=== PATIENT | male | born 1945 | race Two or more races ===

== ENCOUNTER 2021-09-28 16:25 | Emergency (ER) | payer MEDICARE, OTHER ==
[~2021-09-28] VITALS: Ht 175.3 cm; Wt 89.0 kg
[2021-09-28] MEDS ORDERED: METHYLPREDNISOLONE SOD SUCC 125 MG/2 ML VIAL IV STA (17:54)
[2021-09-28] MEDS ORDERED: ALBUTEROL (0.083%) 2.5MG/3ML NEB HHN STA (17:54)
[2021-09-28] MEDS ORDERED: IPRATROPIUM BROMIDE (0.02%) 0.5MG/2.5ML NEB HHN STA (17:54)
[2021-09-28 18:16] LABS: BASOPHILS % 1.4 % (0.0-2.0); EOSINOPHILS % 13.7 % (0.0-5.0); HEMATOCRIT. 41.5 % (42.0-52.0); HEMOGLOBIN. 14.6 g/dL (14.0-18.0); LYMPHOCYTES % 31.5 % (20.0-50.0); MEAN CORPUSCULAR HEMOGLOBIN 31.1 pg (28.0-32.0); MEAN CORPUSCULAR VOLUME 88.7 fL (80.0-94.0); MEAN PLATELET VOLUME 8.8 fl (7.4-10.4); MONOCYTES % 9.6 % (2.0-8.0); NEUTROPHILS % 43.8 % (40.0-76.0); PLATELET 261 x1000/uL (130-400); RED BLOOD CELL COUNT 4.68 mill/uL (4.7-6.1); RED CELL DISTRIBUTION WIDTH 13.3 % (11.6-14.6)
[2021-09-28 18:19] LABS: CHLORIDE 103 mEq/L (98-107)
[2021-09-28 18:28] LABS: ETHANOL BLOOD < 10 mg/dL
[2021-09-28 18:31] LABS: *AMPHETAMINES SCREEN URINE NEGATIVE (NEGATIVE); *BARBITURATES SCREEN URINE NEGATIVE (NEGATIVE); *BENZODIAZEPINES SCREEN URINE NEGATIVE (NEGATIVE); *COCAINE SCREEN URINE NEGATIVE (NEGATIVE); CANNABINOID URINE SCREEN NEGATIVE (NEGATIVE); METHADONE URINE SCREEN NEGATIVE (NEGATIVE); OPIATES URINE SCREEN NEGATIVE (NEGATIVE); PHENCYCLIDINE URINE SCREEN NEGATIVE (NEGATIVE)
[2021-09-28] MEDS ORDERED: P20 MT (19:10)
[2021-09-28] MEDS ORDERED: ALBU18HF2 IH (19:10)
[2021-09-28 20:00] VITALS: BP 158/80
[2021-09-28] MEDS ORDERED: POTASSIUM-SODIUM PHOSPHATE POWDER PACKET PO NR (20:00)
== END 2021-09-28 20:10 | disposition home or self-care (01) ==
LOC: ER 16:25
DX: J45.901 Unspecified asthma with (acute) exacerbation (principal); E87.6 Hypokalemia; J44.9 Chronic obstructive pulmonary disease, unspecified; I10 Essential (primary) hypertension
CPT/HCPCS: 36415; 71045; 80053; 80305; 80320; 83880; 84484; 85025; 93005; 94640; 96374; 99285; J2930; G0480

== ENCOUNTER 2024-06-29 10:02 | Emergency (ER) | payer OTHER ==
[~2024-06-29] VITALS: Ht 172.7 cm; Wt 88.0 kg
[~2024-06-29 10:02] MED LIST: ALBU18HF2 IH; P20 MT
[2024-06-29 10:11] VITALS: O2SAT 96
[2024-06-29 11:57] LABS: BASOPHILS % 0.7 % (0.0-2.0); EOSINOPHILS % 1.6 % (0.0-5.0); HEMATOCRIT. 45.7 % (42.0-52.0); HEMOGLOBIN. 15.4 g/dL (14.0-18.0); LYMPHOCYTES % 31.8 % (20.0-50.0); MEAN CORPUSCULAR HEMOGLOBIN 30.6 pg (28.0-32.0); MEAN CORPUSCULAR HGB CONC 33.7 g/dL (31.0-37.0); MEAN CORPUSCULAR VOLUME 90.9 fL (80.0-94.0); MEAN PLATELET VOLUME 8.1 fl (7.4-10.4); MONOCYTES % 8.1 % (2.0-8.0); NEUTROPHILS % 57.8 % (40.0-76.0); PLATELET 257 x1000/uL (130-400); RED BLOOD CELL COUNT 5.03 mill/uL (4.7-6.1); RED CELL DISTRIBUTION WIDTH 13.7 % (11.6-14.6); WHITE BLOOD COUNT 7.4 x1000/uL (4.5-11.0)
[2024-06-29 11:59] LABS: POTASSIUM 3.3 mEq/L (3.5-5.1)
[2024-06-29 12:05] LABS: CREATININE 1.5 mg/dL (0.6-1.3)
[2024-06-29] MEDS: ACETAMINOPHEN 500MG TABLET PO ONE (12:07)
[2024-06-29] MEDS: KETOROLAC 30MG/ML VIAL IM ONE (12:08)
[2024-06-29] MEDS ORDERED: LIDO700A30 TP (14:30)
[2024-06-29] MEDS ORDERED: ACET-2708 MT (14:30)
[2024-06-29 14:49] VITALS: BP 150/78; PULSE 74; RESP 18; TEMP 36.6; O2SAT 97
== END 2024-06-29 14:54 | disposition home or self-care (01) ==
LOC: ER 10:02
DX: M54.32 Sciatica, left side (principal); M54.31 Sciatica, right side; I10 Essential (primary) hypertension; E11.9 Type 2 diabetes mellitus without complications; J44.89 Other specified chronic obstructive pulmonary disease; Z79.899 Other long term (current) drug therapy
CPT/HCPCS: 99284; 71045; 80048; 83880; 85025; 36415; 73522; 96372; J1885